=== PATIENT | female | born 1955 | race Caucasian/White ===

== ENCOUNTER 2020-11-01 03:50 | Emergency (ER) | payer MEDICARE ==
[2020-11-01 04:16] LABS: BASOPHIL 0.6 % (0-2); EOSINOPHIL 2.8 % (0-7); HCT 36.6 % (37.0-47.0); HGB 12.1 g/dl (12.5-16.0); LYMPHOCYTE 33.6 % (15-48); MCHC 33.1 g/dL (32.0-36.0); MCV 90.8 fL (78.0-100.0); MONOCYTE 11.3 % (0-12); MPV 9.8 fL (6.0-9.5); NEUTROPHIL 51.3 % (41-80); NRBC 0; PLT 281 K/uL (150-400); RBC 4.03 M/uL (4.20-5.40); RDW 11.8 % (11.5-14.0); WBC 4.7 K/uL (4.0-10.5)
[2020-11-01 04:32] LABS: ALBUMIN 3.5 g/dL (3.4-5.0); BILIRUBIN - TOTAL 0.5 mg/dL (0.2-1.0); BUN/CREAT RATIO (CALC) 10.8 RATIO; CREATININE 0.74 mg/dL (0.51-0.95); GLOBULIN (CALCULATION) 4.1 g/dL; POTASSIUM 4.3 mmol/L (3.5-5.1); TOTAL PROTEIN 7.6 g/dL (6.4-8.2)
[2020-11-01 04:48] LABS: BILIRUBIN NEGATIVE (NEGATIVE); BLOOD NEGATIVE Ery/uL (NEGATIVE); CLARITY CLEAR (CLEAR); COLOR YELLOW (YELLOW); GLUCOSE (U) NORMAL (NORMAL); LEUKOCYTES TRACE Leu/uL (NEGATIVE); NITRITE NEGATIVE (NEGATIVE); PROTEIN NEGATIVE (NEGATIVE); UROBILINOGEN 0.2 mg/dL (0.2-1.0)
[2020-11-01 04:55] LABS: SQUAMOUS EPITHELIAL CELLS RARE
== END 2020-11-01 06:45 | disposition home or self-care (01) ==
LOC: FER 03:50
PROVIDERS: Emergency Medicine
DX: R10.31 Right lower quadrant pain (principal); Z98.890 Other specified postprocedural states
CPT/HCPCS: 36415; 80053; 81001; 82150; 83690; 85025; 87088; 99284